=== PATIENT | male | born 1955 | race Caucasian/White ===

== ENCOUNTER 2018-06-02 08:00 | Outpatient (RCR) | payer SELFPAY ==
--- NOTE | 2018-05-26 12:01 | HP.PTEVAL_ITS ---
Patient's Visit Information CHARISSE BRAVO is a 62 year old M referred to Physical Therapy by Angelica Esparza with a diagnosis of CVA. Date of Evaluation: 05/26/18 Physical Therapist: Js Concepcion PT, - Visit Plan Frequency: 1x/Week Duration: 1 Week Plan: Skilled PT not necessary at this time. Pt is discharged. - Subjective Subjective: CVA: 05/15/18. Pt reports his R side of his body was affected by the stroke. Pt reports he did have some balance issues prior to his stroke. Pt believes this may have been caused from a long history of high BP. Pt reports good feeling in his feet. Pt reports his major complaint deals with his poor eyesight. No LE radiculopathy. Pt reports he feels about 75% recovered as far as balance and strength are concerned. Pt reports he is a [employer] by [employer], and notes he is not able to perform all his tasks yet. Pt is not in any pain this date. - Objective Neuro: B LE sensation is WNL to light touch. B patellar tendon reflex= 2/3. MMT : B LE is grossly 4+/5 throughout. Balance: DLS EO/EC > 30 sec with no limitations. Pt is unable to SLS greater than 3 sec bilaterally. - Goals Goal 1:: I with HEP Goal Time Frame: 1 Week - Rehabilitation Potential Physical Therapy Diagnosis: Pt has weakness and decreased balance secondary to CVA Rehabilitation Potential: Good - Anticipated Interventions Patient/Client Instruction: Educate patient on: Condition, Plan of Care For the Purpose of:: To improve self management Therapeutic Exercise to Include: Strength training, Balance training, Dynamic Lumbar Stabilization For the Purpose of:: To improve muscle performance and motor function, To increase tolerance to activity/condition/position Thank you for the opportunity to evaluate your patient. For Medicare and Medicare HMO plans, please review the plan of care and approve it. It will need to be FAXED BACK to us at [phone] for Medicare purposes. Please let me know if there are questions or concerns regarding this plan of care. Physician Signature: Date:
--- OUTSIDE RECORDS SUMMARY | 2018-05-26 13:57 | XMS RPT_ITS ---
:1955 Author Organization [facility] Care Team Providers Name Role Phone PHYSICIAN, NONE Primary Care Unavailable NAEEM KIMBROUGH Admitting Unavailable AMARI WHITAKER, DR. KERN Attending Unavailable NAEEM KIMBROUGH Consulting Unavailable STONEY NAIR, DAYSI Consulting Unavailable CAROLYN NAIR, ROHITH Chan Consulting Unavailable SCOTT NAIR, JULIUS Consulting Unavailable COBY NAIR, CRUZ Consulting Unavailable HERB CAROLINA Attending Unavailable PHYSICIAN, NONE Primary Care Unavailable Angelica Esparza Attending Unavailable Angelica Esparza Referring Unavailable Angelica Esparza Primary Care Unavailable PROBLEMS PROBLEMS No Problem Records FoundPROCEDURES PROCEDURES No Procedure Records FoundRESULTS RESULTS CBC Collected: 05/18/2018 Status: F Source: [facility] 4:05 AM [facility] REPOSITORY TYPE CODE TESTS RESULT OUT OF REFERENCE UNITS RANGE LAB WBC(LOINC) Low 4.50-10.80 10 3/mcL WBC 4.10 LAB RBCCT(LOINC Low 4.50-6.00 10 6/mcL ) RBC 3.88 LAB HGB(LOINC) Low 13.0-17.5 G/dL Hgb 12.3 LAB HCT(LOINC) Low 40.0-52.0 % Hct 35.9 LAB MCV(LOINC) 81.0-100.0 fL MCV 92.4 LAB MCH(LOINC) 27.0-33.0 pg MCH 31.6 LAB MCHC(LOINC) 32.0-36.0 G/dL MCHC 34.2 LAB RDW(LOINC) 11.5-15.5 % RDW 14.5 LAB PLT(LOINC) 150-450 10 3/mcL Platelet 158 LAB MPV(LOINC) 6.4-10.5 fL MPV 7.6 Performed By: #### CBC, ADIFF, ANEU, BMP, GFR ####[place] [address] .AUTO DIFF Collected: 05/18/2018 Status: F Source: [facility] 4:05 AM [facility] REPOSITORY TYPE CODE TESTS RESULT OUT OF REFERENCE UNITS RANGE LAB KRISTIE(LOINC) Low 50.0-75.0 % Neutrophil % 47.6 LAB LYM(LOINC) 20.0-40.0 % Lymphocyte % 38.2 LAB MON(LOINC) 2.0-13.0 % Monocyte % 10.0 LAB EO(LOINC) 0.0-6.0 % Eosinophil % 3.5 LAB BAS(LOINC) 0.0-2.5 % Basophil % 0.7 LAB ABLYM(LOIN 0.90-4.32 10 3/mcL C) Lymphocyte, 1.60 Absolute LAB TRAE(LOINC 0.09-1.40 10 3/mcL ) Monocyte, 0.40 Absolute LAB AEOS(LOINC 0.00-0.65 10 3/mcL ) Eosinophil, 0.10 Absolute LAB ABAS(LOINC 0.00-0.27 10 3/mcL ) Basophil, 0.00 Absolute Performed By: #### CBC, ADIFF, ANEU, BMP, GFR ####[place] [address] .NEUABS Collected: 05/18/2018 Status: F Source: [facility] 4:05 AM [facility] REPOSITORY TYPE CODE TESTS RESULT OUT OF REFERENCE UNITS RANGE LAB ANEU(LOINC) Low 2.25-8.10 10 3/mcL 1.90 Neutrophil, Absolute Performed By: #### CBC, ADIFF, ANEU, BMP, GFR ####[place] [address] BMP Collected: 05/18/2018 Status: F Source: [facility] 4:05 AM [facility] REPOSITORY TYPE CODE TESTS RESULT OUT OF REFERENCE UNITS RANGE LAB GLU(LOINC) 82-115 mg/dL Glucose Level 84 LAB NA(LOINC) 136-145 mEq/L Sodium Level 141 LAB K(LOINC) 3.5-5.0 mEq/L Potassium Level 4.0 LAB CL(LOINC) 98-110 mEq/L Chloride 105 LAB CO2(LOINC) 22-32 mEq/L CO2 27 LAB EBAL(LOINC 4.0-15.0 mEq/L ) Electrolyte 9.0 Balance LAB BUN(LOINC) 8.0-22.0 mg/dL BUN 16.0 LAB CRE(LOINC) 0.60-1.40 mg/dL Creatinine Lvl 0.92 (s) LAB BC(LOINC) 10.0-22.0 ratio BUN/Creatinine 17.4 Ratio LAB CA(LOINC) 8.4-10.1 mg/dL Calcium Lvl 8.7 Performed By: #### CBC, ADIFF, ANEU, BMP, GFR ####[place] [address] .GFR Collected: 05/18/2018 Status: F Source: [facility] 4:05 AM [facility] REPOSITORY TYPE CODE TESTS RESULT OUT OF REFERENCE UNITS RANGE LAB GFRAA(LOINC ml/min/1.73 ) GFR sqm >60 Moroccan Result Comment: GFR Population mean for , Non- Americans Ages 20-29 = 116 mL/min/1.73 sq.m. Ages 30-39 = 107 mL/min/1.73 sq.m. Ages 40-49 = 99 mL/min/1.73 sq.m. Ages 50-59 = 93 mL/ min/1.73 sq.m. Ages 60-69 = 85 mL/min/1.73 sq.m. Ages 70+ = 75 mL/min/1.73 sq.m.Chronic Kidney Disease: Less than 60 mL/min/1.73 square metersEnd Stage Renal Disease: Less than 15 mL/min/1.73 square meters LAB GFRNO(LOINC) ml/min/1.73sqm GFR Non- >60 Result Comment: GFR Population mean for , Non- Americans Ages 20-29 = 116 mL/min/1.73 sq.m. Ages 30-39 = 107 mL/min/1.73 sq.m. Ages 40-49 = 99 mL/min/1.73 sq.m. Ages 50-59 = 93 mL/ min/1.73 sq.m. Ages 60-69 = 85 mL/min/1.73 sq.m. Ages 70+ = 75 mL/min/1.73 sq.m.Chronic Kidney Disease: Less than 60 mL/min/1.73 square metersEnd Stage Renal Disease: Less than 15 mL/min/1.73 square meters Performed By: #### CBC, ADIFF, ANEU, BMP, GFR ####[place] [address] F9 Collected: 05/18/2018 Status: F Source: [facility] 4:05 AM [facility] REPOSITORY TYPE CODE TESTS RESULT OUT OF REFERENCE UNITS RANGE LAB F9(LOINC) Low 79-153 % of Normal Factor 63 IX Performed By: #### F9 ####[place] [address] UA Collected: 05/17/2018 Status: F Source: [facility] 6:09 PM [facility] REPOSITORY TYPE CODE TESTS RESULT OUT OF RANGE REFERENCE UNITS LAB SPCUA(FABIENNE NC) UA Specimen Not Type Given LAB CLRUA(FABIENNE NC) UA Color Yellow LAB APPUA(FABIENNE Clear NC) UA Appear Clear LAB SGUA(LOIN Unknown 1.006-1.029 C) UA Spec Grav <=1.005 LAB GLUA(LOIN Negative mg/dL C) UA Glucose Negative LAB BILUA(FABIENNE Neg-Trace NC) UA Bili Negative LAB KETUA(FABIENNE Neg-Trace mg/dL NC) UA Ketones Negative LAB BLDUA(FABIENNE Neg-Trace NC) UA Blood Negative LAB PHUA(LOIN 5.0 - 8.0 C) UA pH 7.5 LAB PROUA(FABIENNE Negative mg/dL NC) UA Protein Negative LAB UROUA(FABIENNE 0.2-1.0 E.U./dL NC) UA Urobilinogen 0.2 LAB NITUA(FABIENNE Negative NC) UA Nitrite Negative LAB LEUUA(FABIENNE Negative NC) UA Leuk Est Negative Performed By: #### UA ####[place] [address] CBC Collected: 05/17/2018 Status: F Source: [facility] 3:33 AM [facility] REPOSITORY TYPE CODE TESTS RESULT OUT OF REFERENCE UNITS RANGE LAB WBC(LOINC) 4.50-10.80 10 3/mcL WBC 4.50 LAB RBCCT(LOINC Low 4.50-6.00 10 6/mcL ) RBC 3.96 LAB HGB(LOINC) Low 13.0-17.5 G/dL Hgb 12.5 LAB HCT(LOINC) Low 40.0-52.0 % Hct 36.7 LAB MCV(LOINC) 81.0-100.0 fL MCV 92.8 LAB MCH(LOINC) 27.0-33.0 pg MCH 31.5 LAB MCHC(LOINC) 32.0-36.0 G/dL MCHC 33.9 LAB RDW(LOINC) 11.5-15.5 % RDW 14.3 LAB PLT(LOINC) 150-450 10 3/mcL Platelet 162 LAB MPV(LOINC) 6.4-10.5 fL MPV 7.2 Performed By: #### CBC, ADIFF, ANEU, BMP, GFR, F9 #### [address] [address] .AUTO DIFF Collected: 05/17/2018 Status: F Source: [facility] 3:33 [facility] REPOSITORY TYPE CODE TESTS RESULT OUT OF REFERENCE UNITS RANGE LAB KRISTIE(LOINC) 50.0-75.0 % Neutrophil % 54.0 LAB LYM(LOINC) 20.0-40.0 % Lymphocyte % 35.4 LAB MON(LOINC) 2.0-13.0 % Monocyte % 8.5 LAB EO(LOINC) 0.0-6.0 % Eosinophil % 1.5 LAB BAS(LOINC) 0.0-2.5 % Basophil % 0.6 LAB ABLYM(LOIN 0.90-4.32 10 3/mcL C) Lymphocyte, 1.60 Absolute LAB TRAE(LOINC 0.09-1.40 10 3/mcL ) Monocyte, 0.40 Absolute LAB AEOS(LOINC 0.00-0.65 10 3/mcL ) Eosinophil, 0.10 Absolute LAB ABAS(LOINC 0.00-0.27 10 3/mcL ) Basophil, 0.00 Absolute Performed By: #### CBC, ADIFF, ANEU, BMP, GFR, F9 #### [address] [address] .NEUABS Collected: 05/17/2018 Status: F Source: [facility] 3:33 AM [facility] REPOSITORY TYPE CODE TESTS RESULT OUT OF REFERENCE UNITS RANGE LAB ANEU(LOINC) 2.25-8.10 10 3/mcL 2.40 Neutrophil, Absolute Performed By: #### KATT, ADOLU, ANEU, BMP, GFR, F9 #### [place] [id number] BMP Collected: 05/17/2018 Status: F Source: [facility] 3:33 AM [facility] REPOSITORY TYPE CODE TESTS RESULT OUT OF REFERENCE UNITS RANGE LAB GLU(LOINC) 82-115 mg/dL Glucose Level 90 LAB NA(LOINC) 136-145 mEq/L Sodium Level 138 LAB K(LOINC) 3.5-5.0 mEq/L Potassium Level 3.8 LAB CL(LOINC) 98-110 mEq/L Chloride 104 LAB CO2(LOINC) 22-32 mEq/L CO2 26 LAB EBAL(LOINC 4.0-15.0 mEq/L ) Electrolyte 8.0 Balance LAB BUN(LOINC) 8.0-22.0 mg/dL BUN 12.0 LAB CRE(LOINC) 0.60-1.40 mg/dL Creatinine Lvl 0.87 (s) LAB BC(LOINC) 10.0-22.0 ratio BUN/Creatinine 13.8 Ratio LAB CA(LOINC) 8.4-10.1 mg/dL Calcium Lvl 8.4 Performed By: #### KATT, ADOLU, ANEU, BMP, GFR, F9 #### [place] [address] .GFR Collected: 05/17/2018 Status: F Source: [facility] 3:33 AM [facility] REPOSITORY TYPE CODE TESTS RESULT OUT OF REFERENCE UNITS RANGE LAB GFRAA(LOINC ml/min/1.73 ) GFR sqm >60 Moroccan Result Comment: GFR Population mean for , Non- Americans Ages 20-29 = 116 mL/min/1.73 sq.m. Ages 30-39 = 107 mL/min/1.73 sq.m. Ages 40-49 = 99 mL/min/1.73 sq.m. Ages 50-59 = 93 mL/ min/1.73 sq.m. Ages 60-69 = 85 mL/min/1.73 sq.m. Ages 70+ = 75 mL/min/1.73 sq.m.Chronic Kidney Disease: Less than 60 mL/min/1.73 square metersEnd Stage Renal Disease: Less than 15 mL/min/1.73 square meters LAB GFRNO(LOINC) ml/min/1.73sqm GFR Non- >60 Result Comment: GFR Population mean for , Non- Americans Ages 20-29 = 116 mL/min/1.73 sq.m. Ages 30-39 = 107 mL/min/1.73 sq.m. Ages 40-49 = 99 mL/min/1.73 sq.m. Ages 50-59 = 93 mL/ min/1.73 sq.m. Ages 60-69 = 85 mL/min/1.73 sq.m. Ages 70+ = 75 mL/min/1.73 sq.m.Chronic Kidney Disease: Less than 60 mL/min/1.73 square metersEnd Stage Renal Disease: Less than 15 mL/min/1.73 square meters Performed By: #### CBC, ADIFF, ANEU, BMP, GFR, F9 #### [address] [address] F9 Collected: 05/17/2018 Status: F Source: [facility] 3:33 AM [facility] REPOSITORY TYPE CODE TESTS RESULT OUT OF REFERENCE UNITS RANGE LAB F9(LOINC) Low 79-153 % of Normal Factor 56 IX Performed By: #### CBC, ADIFF, ANEU, BMP, GFR, F9 #### [place] [address] F9 Collected: 05/16/2018 Status: F Source: [facility] 11:56 AM [facility] REPOSITORY TYPE CODE TESTS RESULT OUT OF REFERENCE UNITS RANGE LAB F9(LOINC) 79-153 % of Normal Factor 134 IX Performed By: #### F9 ####[place] [address] CT HEAD OR BRAIN W/O Observed: 05/16/2018 Status: F Source: [facility] CONTRAST 5:37 AM [facility] REPOSITORY ORIGINALHead CT, 05/16/2018 5:43 AM INDICATION: Hemorrhagic stroke COMPARISON: Previous day TECHNIQUE: Routine non-contrast head CT. This exam was performed according to our departmental dose optimization program, and includes the following measures where applicable: automated exposure control, adjustment of the mAs and/or kVp according to patient size and/or exam, and an iterative reconstruction algorithm. FINDINGS: There is a 3 cm acute appearing hematoma in the LEFT posterior basal ganglia. Mild associated edema, and mild associated mass effect. There is slight midline shift, 2 mm or so. There is mild layering hemorrhage in the LEFT occipital horn. Kwong-white matter differentiation outside the area of edema is maintained. The calvaria and the bones of the base of the skull are intact. IMPRESSION: A small amount of blood in the LEFT occipital horn is new since the comparison. The hematoma and the ventricles are unchanged in size. Interpreted By: Coni Campbellreliminary Report By: Coni Campbell MDElectronically Signed By: Coni Campbell MD Dictated Date: 05/16/2018 8:35:40 AM Prelim Date: 05/16/2018 8:35:40 AM Sign Date: 05/16/2018 8:37:50 AM CBC Collected: 05/16/2018 Status: F Source: [facility] 4:09 AM [facility] REPOSITORY TYPE CODE TESTS RESULT OUT OF REFERENCE UNITS RANGE LAB WBC(LOINC) 4.50-10.80 10 3/mcL WBC 4.50 LAB RBCCT(LOINC Low 4.50-6.00 10 6/mcL ) RBC 3.82 LAB HGB(LOINC) Low 13.0-17.5 G/dL Hgb 12.1 LAB HCT(LOINC) Low 40.0-52.0 % Hct 35.3 LAB MCV(LOINC) 81.0-100.0 fL MCV 92.4 LAB MCH(LOINC) 27.0-33.0 pg MCH 31.7 LAB MCHC(LOINC) 32.0-36.0 G/dL MCHC 34.4 LAB RDW(LOINC) 11.5-15.5 % RDW 14.1 LAB PLT(LOINC) 150-450 10 3/mcL Platelet 159 LAB MPV(LOINC) 6.4-10.5 fL MPV 7.6 Performed By: #### CBC, ADIFF, ANEU, BMP, GFR ####[place] [address] .AUTO DIFF Collected: 05/16/2018 Status: F Source: [facility] 4:09 AM [facility] REPOSITORY TYPE CODE TESTS RESULT OUT OF REFERENCE UNITS RANGE LAB KRISTIE(LOINC) 50.0-75.0 % Neutrophil % 62.1 LAB LYM(LOINC) 20.0-40.0 % Lymphocyte % 26.6 LAB MON(LOINC) 2.0-13.0 % Monocyte % 9.3 LAB EO(LOINC) 0.0-6.0 % Eosinophil % 1.4 LAB BAS(LOINC) 0.0-2.5 % Basophil % 0.6 LAB ABLYM(LOIN 0.90-4.32 10 3/mcL C) Lymphocyte, 1.20 Absolute LAB TRAE(LOINC 0.09-1.40 10 3/mcL ) Monocyte, 0.40 Absolute LAB AEOS(LOINC 0.00-0.65 10 3/mcL ) Eosinophil, 0.10 Absolute LAB ABAS(LOINC 0.00-0.27 10 3/mcL ) Basophil, 0.00 Absolute Performed By: #### CBC, ADIFF, ANEU, BMP, GFR ####[place] [address] .NEUABS Collected: 05/16/2018 Status: F Source: [facility] 4:09 AM [facility] REPOSITORY TYPE CODE TESTS RESULT OUT OF REFERENCE UNITS RANGE LAB ANEU(LOINC) 2.25-8.10 10 3/mcL 2.80 Neutrophil, Absolute Performed By: #### CBC, ADIFF, ANEU, BMP, GFR ####[place] [address] BMP Collected: 05/16/2018 Status: F Source: [facility] 4:09 [facility] REPOSITORY TYPE CODE TESTS RESULT OUT OF REFERENCE UNITS RANGE LAB GLU(LOINC) 82-115 mg/dL Glucose Level 92 LAB NA(LOINC) 136-145 mEq/L Sodium Level 137 LAB K(LOINC) 3.5-5.0 mEq/L Potassium Level 3.5 LAB CL(LOINC) 98-110 mEq/L Chloride 102 LAB CO2(LOINC) 22-32 mEq/L CO2 27 LAB EBAL(LOINC 4.0-15.0 mEq/L ) Electrolyte 8.0 Balance LAB BUN(LOINC) 8.0-22.0 mg/dL BUN 12.0 LAB CRE(LOINC) 0.60-1.40 mg/dL Creatinine Lvl 0.78 (s) LAB BC(LOINC) 10.0-22.0 ratio BUN/Creatinine 15.4 Ratio LAB CA(LOINC) Low 8.4-10.1 mg/dL Calcium Lvl 8.3 Performed By: #### CBC, ADIFF, ANEU, BMP, GFR ####[address] [address] .GFR Collected: 05/16/2018 Status: F Source: [facility] 4:09 AM [facility] REPOSITORY TYPE CODE TESTS RESULT OUT OF REFERENCE UNITS RANGE LAB GFRAA(LOINC ml/min/1.73 ) GFR sqm >60 Moroccan Result Comment: GFR Population mean for , Non- Americans Ages 20-29 = 116 mL/min/1.73 sq.m. Ages 30-39 = 107 mL/min/1.73 sq.m. Ages 40-49 = 99 mL/min/1.73 sq.m. Ages 50-59 = 93 mL/ min/1.73 sq.m. Ages 60-69 = 85 mL/min/1.73 sq.m. Ages 70+ = 75 mL/min/1.73 sq.m.Chronic Kidney Disease: Less than 60 mL/min/1.73 square metersEnd Stage Renal Disease: Less than 15 mL/min/1.73 square meters LAB GFRNO(LOINC) ml/min/1.73sqm GFR Non- >60 Result Comment: GFR Population mean for , Non- Americans Ages 20-29 = 116 mL/min/1.73 sq.m. Ages 30-39 = 107 mL/min/1.73 sq.m. Ages 40-49 = 99 mL/min/1.73 sq.m. Ages 50-59 = 93 mL/ min/1.73 sq.m. Ages 60-69 = 85 mL/min/1.73 sq.m. Ages 70+ = 75 mL/min/1.73 sq.m.Chronic Kidney Disease: Less than 60 mL/min/1.73 square metersEnd Stage Renal Disease: Less than 15 mL/min/1.73 square meters Performed By: #### CBC, ADIFF, ANEU, BMP, GFR ####[place] [address] TSH Collected: 05/16/2018 Status: F Source: [facility] 4:09 AM [facility] REPOSITORY TYPE CODE TESTS RESULT OUT OF RANGE REFERENCE UNITS LAB TSH(LOINC) High 0.360-3.740 mcIU/mL TSH 25.400 Result Comment: Please note as of 04/12/17 new pediatric reference intervals were added for this test. Performed By: #### TSH, FT4, FT3, APTT, F9 ####[address] [address] FT4 Collected: 05/16/2018 Status: F Source: [facility] 4:09 AM [facility] REPOSITORY TYPE CODE TESTS RESULT OUT OF RANGE REFERENCE UNITS LAB FT4(LOINC) Low 0.60-1.70 ng/dL Free 0.32 T4 Result Comment: Please note as of 04/12/17 new pediatric reference intervals were added for this test. Performed By: #### TSH, FT4, FT3, APTT, F9 ####[address] [address] FT3 Collected: 05/16/2018 Status: F Source: [facility] 4:09 AM [facility] REPOSITORY TYPE CODE TESTS RESULT OUT OF RANGE REFERENCE UNITS LAB FT3(LOINC) Low 2.30-4.20 pg/mL Free 1.04 T3 Result Comment: Please note as of 04/12/17 new pediatric reference intervals were added for this test. Performed By: #### TSH, FT4, FT3, APTT, F9 ####[address] [address] APTT Collected: 05/16/2018 Status: F Source: [facility] 4:09 AM [facility] REPOSITORY TYPE CODE TESTS RESULT OUT OF REFERENCE UNITS RANGE LAB PDOSE(LOIN C) Heparin None dose (APTT) LAB APTT0(LOIN 25.0-35.0 seconds C) APTT 32.9 Result Comment: For Heparin anticoagulation therapy, the recommendedtherapeutic range is: 54-77 seconds (APTT Correlationwith Anti-Xa therapeutic range of 0.3-0.7 units/ml).PLEASE REFERENCE THE PHARMACY PROTOCOL FOR DOSING. Performed By: #### TSH, FT4, FT3, APTT, F9 ####[address] [address] F9 Collected: 05/16/2018 Status: F Source: [facility] 4:09 AM [facility] REPOSITORY TYPE CODE TESTS RESULT OUT OF REFERENCE UNITS RANGE LAB F9(LOINC) Low 79-153 % of Normal Factor 63 IX Performed By: #### TSH, FT4, FT3, APTT, F9 ####[address] [address] Observed: 05/15/2018 Status: F Source: [facility] MRPCR 5:21 PM [facility] REPOSITORY . MICRO - MicrobiologyPROCEDURE: MRSA PCR [*1] Nares BODY SITE:COLLECTED DATE/TIME: 05/15/2018 17:21 EDT RECEIVED DATE/TIME: 05/15/2018 17:31 EDTSTART DATE/TIME: 05/15/2018 17:31 EDT FREE TEXT SOURCE:FINAL REPORTSFinal Report []Verified Date/Time/Personnel: 2017 22:35 EDTMRSA NEGATIVE.MRSA DNA not detected by Real-Time Polymerase ChainReaction (PCR). A negative result may be due tointermittent colonization. Colonization may varydepending on patient treatment, patient status orexposure to high risk environments.As with all PCR based in vitro tests, extremely lowlevels of target below the limit of detection of theassay may be detected, but results may not bereproducible.Performing Locations*1: This test was performed at: [facility], [address] [place] [address], [address] [place] [address] Performed By: #### MRPCR ####[address] [address] F9 Collected: 05/15/2018 Status: F Source: [facility] 4:24 PM [facility] REPOSITORY Order Comment: factor 9 activityNo specimen @ 5:15 pm; Spoke to Sebastian in ER, he said it was drawn & tubed to Main lab. Specimenarrived in Main Lab 5 min after calling ER/Micro & BBK TYPE CODE TESTS RESULT OUT OF REFERENCE UNITS RANGE LAB F9(LOINC) 79-153 % of Normal Factor 128 IX Performed By: #### F9 ####[address] [address] CBC Collected: 05/15/2018 Status: F Source: [facility] 3:15 PM [facility] REPOSITORY TYPE CODE TESTS RESULT OUT OF REFERENCE UNITS RANGE LAB WBC(LOINC) Low 4.50-10.80 10 3/mcL WBC 4.20 LAB RBCCT(LOINC Low 4.50-6.00 10 6/mcL ) RBC 3.91 LAB HGB(LOINC) Low 13.0-17.5 G/dL Hgb 12.2 LAB HCT(LOINC) Low 40.0-52.0 % Hct 36.4 LAB MCV(LOINC) 81.0-100.0 fL MCV 93.0 LAB MCH(LOINC) 27.0-33.0 pg MCH 31.2 LAB MCHC(LOINC) 32.0-36.0 G/dL MCHC 33.6 LAB RDW(LOINC) 11.5-15.5 % RDW 14.4 LAB PLT(LOINC) 150-450 10 3/mcL Platelet 156 LAB MPV(LOINC) 6.4-10.5 fL MPV 6.9 Performed By: #### CBC, ADIFF, ANEU, BMP, TROPI, GFR, APTT , PRO, ABORH, ANTIS ####[place] [address] .AUTO DIFF Collected: 05/15/2018 Status: F Source: [facility] 3:15 PM [facility] REPOSITORY TYPE CODE TESTS RESULT OUT OF REFERENCE UNITS RANGE LAB KRISTIE(LOINC) High 50.0-75.0 % Neutrophil % 75.9 LAB LYM(LOINC) Low 20.0-40.0 % Lymphocyte % 15.4 LAB MON(LOINC) 2.0-13.0 % Monocyte % 7.6 LAB EO(LOINC) 0.0-6.0 % Eosinophil % 0.7 LAB BAS(LOINC) 0.0-2.5 % Basophil % 0.4 LAB ABLYM(LOIN Low 0.90-4.32 10 3/mcL C) Lymphocyte, 0.60 Absolute LAB TRAE(LOINC 0.09-1.40 10 3/mcL ) Monocyte, 0.30 Absolute LAB AEOS(LOINC 0.00-0.65 10 3/mcL ) Eosinophil, 0.00 Absolute LAB ABAS(LOINC 0.00-0.27 10 3/mcL ) Basophil, 0.00 Absolute Performed By: #### CBC, ADIFF, ANEU, BMP, TROPI, GFR, APTT , PRO, ABORH, ANTIS ####[place] [id number] .NEUABS Collected: 05/15/2018 Status: F Source: [facility] 3:15 PM [facility] REPOSITORY TYPE CODE TESTS RESULT OUT OF REFERENCE UNITS RANGE LAB ANEU(LOINC) 2.25-8.10 10 3/mcL 3.20 Neutrophil, Absolute Performed By: #### CBC, ADIFF, ANEU, BMP, TROPI, GFR, APTT , PRO, ABORH, ANTIS ####[place] [address] BMP Collected: 05/15/2018 Status: F Source: [facility] 3:15 [facility] REPOSITORY TYPE CODE TESTS RESULT OUT OF REFERENCE UNITS RANGE LAB GLU(LOINC) 82-115 mg/dL Glucose Level 106 LAB NA(LOINC) Low 136-145 mEq/L Sodium Level 132 LAB K(LOINC) 3.5-5.0 mEq/L Potassium Level 3.7 LAB CL(LOINC) 98-110 mEq/L Chloride 99 LAB CO2(LOINC) 22-32 mEq/L CO2 27 LAB EBAL(LOINC 4.0-15.0 mEq/L ) Electrolyte 6.0 Balance LAB BUN(LOINC) 8.0-22.0 mg/dL BUN 17.0 LAB CRE(LOINC) 0.60-1.40 mg/dL Creatinine Lvl 0.80 (s) LAB BC(LOINC) 10.0-22.0 ratio BUN/Creatinine 21.2 Ratio LAB CA(LOINC) 8.4-10.1 mg/dL Calcium Lvl 8.4 Performed By: #### CBC, ADIFF, ANEU, BMP, TROPI, GFR, APTT , PRO, ABORH, ANTIS ####[place] [address] TROPI Collected: 05/15/2018 Status: F Source: [facility] 3:15 PM [facility] REPOSITORY TYPE CODE TESTS RESULT OUT OF REFERENCE UNITS RANGE LAB TROPI(LOINC 0.000-0.040 ng/mL ) Troponin I <0.015 Result Comment: Troponin I reference ranges (06/06/14): 0.00-0.040 ng/mL Negative and non-diagnostic. >0.040 ng/mL Consistent with cardiac damage, increased clinical risk and possibility of myocardial infarction. Serial measurements, a rise & fall in test results, clinical history, appropriate symptoms and/or ECG changes may help assess possibility of [place]. *Other non-acute coronary syndrome conditions such as CHF, myocarditis, pulmonary emboli, sepsis and cardiac surgery could result in myocardial damage and increased troponin levels. Performed By: #### CBC, ADIFF, ANEU, BMP, TROPI, GFR, APTT , PRO, ABORH, ANTIS ####[place] [id number] [address] [place] [address] .GFR Collected: 05/15/2018 Status: F Source: [facility] 3:15 PM [facility] RE[facility]IT[facility] TYPE CODE TESTS RESULT OUT OF REFERENCE UNITS RANGE LAB GFRAA(LOINC ml/min/1.73 ) GFR sqm >60 [place] Result Comment: GFR Population mean for , Non- Americans Ages 20-29 = 116 mL/min/1.73 sq.m. Ages 30-39 = 107 mL/min/1.73 sq.m. Ages 40-49 = 99 mL/min/1.73 sq.m. Ages 50-59 = 93 mL/ min/1.73 sq.m. Ages 60-69 = 85 mL/min/1.73 sq.m. Ages 70+ = 75 mL/min/1.73 sq.m.Chronic Kidney Disease: Less than 60 mL/min/1.73 square metersEnd Stage Renal Disease: Less than 15 mL/min/1.73 square meters LAB GFRNO(LOINC) ml/min/1.73sqm GFR Non- >60 Result Comment: GFR Population mean for , Non- Americans Ages 20-29 = 116 mL/min/1.73 sq.m. Ages 30-39 = 107 mL/min/1.73 sq.m. Ages 40-49 = 99 mL/min/1.73 sq.m. Ages 50-59 = 93 mL/ min/1.73 sq.m. Ages 60-69 = 85 mL/min/1.73 sq.m. Ages 70+ = 75 mL/min/1.73 sq.m.Chronic Kidney Disease: Less than 60 mL/min/1.73 square metersEnd Stage Renal Disease: Less than 15 mL/min/1.73 square meters Performed By: #### CBC, ADIFF, ANEU, BMP, TROPI, GFR, APTT , PRO, ABORH, ANTIS ####[place] [id number] [place] [id number] APTT Collected: 05/15/2018 Status: F Source: [facility] 3:15 PM [facility] REPOSITORY TYPE CODE TESTS RESULT OUT OF REFERENCE UNITS RANGE LAB PDOSE(LOIN C) Heparin None dose (APTT) LAB APTT0(LOIN High 25.0-35.0 seconds C) APTT 51.5 Result Comment: no heparin confirmed with Chente RNFor Heparin anticoagulation therapy, the recommendedtherapeutic range is: 54-77 seconds ( APTT Correlationwith Anti-Xa therapeutic range of 0.3-0.7 units/ml).PLEASE REFERENCE THE PHARMACY PROTOCOL FOR DOSING. Performed By: #### CBC, ADIFF, ANEU, BMP, TROPI, GFR, APTT , PRO, ABORH, ANTIS ####[address] [address] PRO Collected: 05/15/2018 Status: F Source: [facility] 3:15 PM [facility] REPOSITORY TYPE CODE TESTS RESULT OUT OF REFERENCE UNITS RANGE LAB PT(LOINC) 9.0-14.5 seconds Protime 11.7 Result Comment: Effective 04/12/08, Protime results may be affected by some antibiotics (i.e. Ciprofloxacin, Azithromycin, Bactrim) which may potentiate the action of oral anticoagulants, with further increases in Protime /INR. LAB INR(LOINC) ratio PT International Ratio 1.0 Result Comment: [employer] [place] [employer] ( CHEST, 1992, [id number])recommended therapeutic range for oral anticoagulant therapy is:LOW RISK: Prophylaxis of venous thrombosis INR: 2.0-3.0 Treatment of pulmonary embolism 2.0-3.0 Prevention of systemic embolism 2.0-3.0HIGH RISK: Mechanical prosthetic valves 2.5-3.5 Performed By: #### CBC, ADIFF, ANEU, BMP, TROPI, GFR, APTT , PRO, ABORH, ANTIS ####[place] [address] TABO Collected: 05/15/2018 Status: F Source: [facility] 3:15 PM [facility] REPOSITORY TYPE CODE TESTS RESULT OUT OF RANGE REFERENCE UNITS LAB ABORH(LOINC Unknown ) O POS ABO/Rh Interp Performed By: #### CBC, ADIFF, ANEU, BMP, TROPI, GFR, APTT , PRO, ABORH, ANTIS ####[place] [address] TABS Collected: 05/15/2018 Status: F Source: [facility] 3:15 PM [facility] REPOSITORY TYPE CODE TESTS RESULT OUT OF REFERENCE UNITS RANGE LAB ANST(LOINC ) Antibody Negative Screen Tango ABSC Performed By: #### CBC, ADIFF, ANEU, BMP, TROPI, GFR, APTT , PRO, ABORH, ANTIS ####[place] [address] CT HEAD OR BRAIN W/O Observed: 05/15/2018 Status: F Source: [facility] CONTR[facility] 2:43 PM [facility] REPOSITORY ORIGINALHead CT, 05/15/2018 2:48 PM INDICATION: stroke standby COMPARISON: No TECHNIQUE: Routine non-contrast head CT. This exam was performed according to our departmental dose optimization program, and includes the following measures where applicable: automated exposure control, adjustment of the mAs and/or kVp according to patient size and/or exam, and an iterative reconstruction algorithm. FINDINGS: There is a 3 cm parenchymal hematoma in the posterior LEFT frontal lobe, centered near the posterior basal ganglia, with mild associated mass effect and edema. There is no intraventricular component. Kwong-white matter differentiation is maintained outside the area of edema. The calvaria and the bones of the base of the skull are intact. IMPRESSION: 3 cm acute LEFT parenchymal hemorrhage. Interpreted By: Coni Campbellreliminary Report By: Coni Campbell MDElectronically Signed By: Coni Campbell MD Dictated Date: 05/15/2018 2:48:53 PM Prelim Date: 05/15/2018 2:48:53 PM Sign Date: 05/15/2018 2:52:07 PM ALLERGIES ALLERGIES No Allergies Records FoundENCOUNTERS ENCOUNTERS ADMIT/DISCHARGE ACCOUNT NUMBER ADMITTING ENCOUNTER LOCATION SOURCE CLASS 05/26/2018 [id number] Ambulatory [place] Rima [facility] ding:OT Repository 05/18/2018 [id number] Ambulatory ABuilding:XR Saeed [facility] Repository 05/15/2018/05/18/20 [id number] NAEEM KIMBROUGH Inpatient ABuilding:ME Saeed 18 Encounter 5SRoom: Health 5673Bed: A Foundation Repository PAYERS PAYERS ENCOUNTER GUARANTOR PAYER SUBSCRIBER SOURCE 05/26/2018 CHARISSE Joe Primary Insurance:[facility] CHARISSE Diaz [place] [id number] HERNANDEZ PACKAGE PLANPolicy [facility]ODERDOB[facility], [facility]: [id number] [address]Woc: [id number] Repository Date:2018-05-21 (HP) 05/26/2018 Secondary NOT GIVENUNK [place] Insurance:SELF PAY [facility] Number: Effective Repository Date:2018-05-21 05/18/2018 CHARISSE Diaz Primary CHARISSE [facility] YODERDOB: Insurance:SELF YODERDOB: [facility] [id number] PAYPolicy Number: [id number] Repository [place] [address] [place] Date:2018-05-18 [place], [place] [address]Zqr: [phone] Name:8 [id number]: (HP) [phone] (HP) (WP) 05/15/2018 CHARISSE Diaz Primary CHARISSE Diaz [facility] YODERDOB: Insurance:SELF YODERDOB: [facility] [id number] PAYPolicy Number: [id number] Repository [address] Effective 03 [place] Date:2018-05-15 [place], [place] [address]Izo: [phone] Name:[id number]: (HP) [phone] (HP) (WP)
--- NOTE | 2018-05-26 17:20 | HP.OTEVAL ---
Patient's Visit Information CHARISSE BRAVO is a 62 year old M, referred to Occupational Therapy by Angelica Esparza, with a diagnosis of CVA. 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 He states that it affected his R side, balance walking, memory, speaking and vision. He reports that his walking has gotten better again and he likes to sing more than speaking. He returned home with spouse after hospitalization. 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 Pt lives w/ spouse in one level home with 3 steps 1 handrail. Walk in shower, no AE. std toilet seats. Right handed. - Objective Objective/Observation: Pt likes to sing and wants spouse to answer all the questions instead of himself. Pt demonstrates good R hand and upper extremity strength. Pt able to walk back to therapy area - ROM ROM Comments: BUE WF - Strength Physician/Ophthalmologist: R 85#, L 30# Strength Comments: Generalized MMT R UE 4/5 L UE 4-/5. . Pt has had increased weakness L UE for years from old injury. Pt demo good programming specialist strength R hand. Pt states no feelings of decreased strength. - Edema Other: no edema - Sensation Sensation Comments: Pt states no numbness or tingling. - Cognitive Skills Follows Directions: Yes - Nine Hole Peg Right: 40 seconds Left: 35 seconds Comments: Pt had difficult time understanding directions at first with R hand. - Stroke Specific Quality of Life Total SS-QOL Score: 55 - Rehabilitation General Assessment: Pt demonstrates decreased vision, R neglect. Pt demonstrates decreased memory and cognitive skills. Pt states he is able to get dressed on his own, occassionally might have his spouse assist with getting his feet through his pants, but is independent with all other tasks. Stands in shower to complete bathing independently. Assisting with meal prep cutting food and putting food on storage shelves. 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 Pt is having some difficulty with stabbing his food with fork secondary to decreased vision. Have educated on awareness of visual deficits and importance to turn head to look at surroundings and see everything around him secondary to neglect. Pt demonstrates good bilateral coordination tasks and able to close eyes and touch nose without difficulty R and L hand as well as, touch each finger to his thumb without difficulty. Pt able to legibly write first and last name manuscript and curse however unable to write on the line secondary to unable to visually see one line correctly. Educated on adaptive techniques, compensatory strategies to assist with writing on the line and to assist with decreased vision at this time. Recommend no OT at this time. OT evaluation only. Recommend seeing eye due to vision deficits. Pt completing BADL's independently other than occassionally needing some assist. Spouse stated she is concerned with his memory and cognitive skills. - Visit Plan Frequency: 1x/Week Duration: 1 Week General Plan: OT evaluation only. D/C OT services at this time. TEXT: Thank you for the opportunity to evaluate your patient. For Medicare and Medicare HMO plans, please review the plan of care and approve it. It will need to be FAXED BACK to us at [phone] for Medicare purposes. Please let me know if there are questions or concerns regarding this plan of care. Physician Signature: Date:
--- NOTE | 2018-06-04 14:27 | HP.SP.AD ---
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 He states that it affected his R side, balance walking, memory, speaking and vision. He returned home with spouse after hospitalization. He was in [facility] -5 days. Hx Smoking: No - Pain Is pain an issue with your current prescribed condition?: No - Personal Right Hearing Abillity: Normal Left Hearing Abillity: Normal Visual Assistive Devices: Glasses Patients Living Arrangements: With Significant Other Other Impressions - Comments Evaluation -: Patient's was present during evaluation. Patient stated that he just wanted to come here once and that was it. Initially, patient wanted to answer therapist questions for him. 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 Throughout session patient kept readjusting his glasses as he stated he was having difficulty seeing. stated that he has not had his vision tested yet. state that he at times becomes agitated. Patient is aware that he has some difficulties but stated that they are getting better. Expressive speech -: Patient's spontaneous speech was characterized by short phrases. Patient had difficulty relaying relevant formation to the therapist. Patient would perseverate on topic. Patient had difficulty communicating relevent information to the therapist. Patient kept saying that things are getting better Patient presented a auditory comprehension impairment which affected his ability to answer questions. Patient stated that he felt things keep improving. His stated that he has made some improvements since he has been home. Patient wrote his name in cursive and stated that this had improved. Auditory comprehension -: Patient presented with a moderate auditory comprehension deficit. He would perseverate on a question that had been asked and needed cueing to focus on the next question. 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 stated he has not driven the buggy since being home. Therapist suggested that he not yet drive but that he could start helping in hitching up the horse and then have someone check to make sure he did it correctly. 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 Patient stated he likes to read the Bible. Therapist suggested that he could work on improving his comprehension by having his ask him questions about what he has read. His could also read an article to him and then ask him questions about what she had read to him. Memory -: stated he is having difficulties remembering. With cueing and use of a calendar, patient was able to state the correct date. Therapist suggested that patient read a verse of the Bible and then wait 30 mins. and then try and remember the details and state them to his . He should also create a to-do list each day and cross off the task once it has been completed. Plan - Plan Plan: Patient is reluctant about coming in for therapy. It was discuss with that they could try a home program with therapist providing them with material to work on at home. Therapist stated to that if she felt that patient was continuing to have difficulties after completing the home program that she could schedule additional visits. - Recommendations Treatment Warranted: No - Prognosis Prognosis: Good - Goal #1-5 Goal #1: Patient will be trying activities at home to help improve his auditory comprehension and memory skills. Education - Patient has Indicated that the Following Identified Educational Needs: Cognitively Impaired Other Educational Needs: was present during evaluation to answer questions. - Patient Instruction Patient Education: Treatment Plan, Home Exercise Program Person Taught: Family Teaching Method: Discussion Response to teaching: Verbalize understanding
--- NOTE | 2018-09-08 12:15 | HP.SP.DC ---
ST Discharge Summary - Discharged: Discharge: Patient was initially evaluated on 06/12/18.Patient is reluctant about coming in for therapy. It was discuss with that they could try a home program with therapist providing them with material to work on at home. Therapist stated to that if she felt that patient was continuing to have difficulties after completing the home program that she could schedule additional visits. Patient has not scheduled any additional visits at this time and has been discharged from speech therapy. [ End ]
== END 2018-06-02 19:00 | disposition home or self-care (01) ==
LOC: SP 08:00
PROVIDERS: Family Provider Family Medicine; PCP Family Medicine; Visit Provider Family Medicine
DX: Z86.73 Personal history of transient ischemic attack (TIA), and cerebral infarction without residual deficits (principal); D68.1 Hereditary factor XI deficiency; R47.1 Dysarthria and anarthria
CPT/HCPCS: 92523; 97162; 97166

== ENCOUNTER → 2018-07-17 09:24 | Outpatient (CLI) | payer OTHER, SELFPAY ==
[2018-07-17 09:38] VITALS: BP 145/84; PULSE 76; RESP 16; TEMP 36.8; O2SAT 99; BMI 21.1
--- NOTE | 2018-07-17 10:21 | ONC.OV1 ---
Subjective - Date of Service Date of Service:: 07/17/18 - Chief Complaint F/U for Hemophilia B. 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 Had a stroke in March 2018. He has Hepatitis C, reported inactive. Had spontaneous bleed in L thigh and treated with factor replacement. This morning, had pain in L elbow so treated himself. - Past Medical/Social History Past Medical History Past Medical History: Blood transfusion,Hernia,Hepatitis C, Hypertension,Liver disease,Pneumonia Other Past Medical History: HYPOTHYROIDISM Past Surgical History Other Surgical History: LIVER BIOSPY Family History Paternal Past Medical History: Unknown Maternal Past Medical History: Unknown Social History Smoking Status Former smoker Review of Systems Constitutional:: Denies: Fever, Sweats, Weight loss, Appetite change, Chills Cardiovascular:: Denies: Chest pain, Palpitations, Dyspnea on exertion, Orthopnea, PND, Shortness of breath Respiratory: Denies: Cough, Hemoptysis, Shortness of Breath, Wheezing Gastrointestinal:: Denies: Abdominal pain, Nausea, Vomiting, Diarrhea, Constipation, Hematochezia Genitourinary: Denies: Dysuria, Hematuria, 15, Flank pain Musculoskeletal:: Reports: Arthralgia - L elbow.. Denies: Back pain, Myalgia Skin: Denies: Rash, Skin Changes, Wounds Neurological:: Denies: Headache, Dizziness, Visual changes, Tinnitus, Hearing loss Psychiatric: Denies: Anxiety, Depression, Homicidal Ideations, Suicidal Ideations Vital Signs Height 5 ft 9 in Weight: 64.864 kg Weight in Pounds 143.0 lbs Pulse Ox 99 Temperature 98.3 F Pulse Rate 76 Respiratory Rate 16 Blood Pressure 145/84 Blood Pressure Position Sitting - Physical Exam General: Alert, Oriented x3, No apparent distress HEENT: Atraumatic, PERRLA, EOMI, Normocephalic Oropharynx:: Dry mucosa Neck:: Supple, Trachea midline. Negative for: JVD, bilateral Cardiac:: Regular rate, Regular rhythm, Normal S1, Normal S2. Negative for: Murmur Lungs: Clear to auscultation, Excusion symmetrical. Negative for: Rhonchi, Wheezes Abdomen:: Bowel sounds x 4, Soft, Non-tender, Non-distended. Negative for: Hepatosplenomegaly Extremities:: - - Chronic nodular swellings around the L elbow. Neurological: Neuro grossly intact Psychiatric:: Appropriate affect, Euthymic Lymphatics:: Negative for: Cervical lymphadenopathy, Supraclavicular lymphadenopathy, Axillary lymphadenopathy Assessment and Plan Hemophilia B, clinically stable. Hepatitis C. 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 Had a hemorrhagic stroke. Plan is to continue factor replacement as needed. RTC 1 yr. Medications: Prescriptions This Visit Medication Instructions Recorded Amlodipine Besylate [Norvasc] 5 mg PO DAILY 07/17/18 Levothyroxine [Synthroid] 75 mg PO DAILY 07/17/18 Primary Care Provider: No Primary Care Phys Referring Provider: Scout Nelson MD - Problem List (1) Hemophilia B in male Status: Chronic Code Visit Office Visits / Consults: 02104 OV L3 Est
== END ==
PROVIDERS: Visit Provider Internal Medicine Medical Oncology
DX: D67 Hereditary factor IX deficiency (principal)

== ENCOUNTER → 2019-09-10 08:42 | Outpatient (CLI) | payer SELFPAY ==
[2019-09-10 08:59] VITALS: BP 119/70; PULSE 72; RESP 16; TEMP 36.7; O2SAT 100; BMI 21.5
--- NOTE | 2019-09-10 09:13 | HTC.HP3 ---
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 He did factor replacement for Left elbow pain, has not seen a Dentist. Has Hep C which is inactive. Health History: Past Medical History Past Medical History: Blood transfusion,Hernia,Hepatitis C, Hypertension,Liver disease,Pneumonia Other Past Medical History: HYPOTHYROIDISM Past Surgical History Other Surgical History: LIVER BIOSPY Family History Paternal Past Medical History: Unknown Maternal Past Medical History: Unknown Past Medical History (Last Updated 09/10/19 @ 09:00 by Chiqui Mendiola) Aplastic anemia (Acute) Hemophilia B (Acute) Hepatitis C (Acute) Hypothyroid (Acute) Pneumonia (Acute) Hypertension (Chronic) Past Surgical History (Last Reviewed 09/10/19 @ 08:57 by Chiqui Mendiola) History of liver biopsy (Acute) Family History (Last Reviewed 09/10/19 @ 08:59 by Chiqui Mendiola) Brother Hypertension Sister Diabetes Social History Social History: No changes Smoking Status Former smoker Allergies/Adverse Reactions: Allergy/AdvReac Type Severity Reaction Status Date / Time aspirin Allergy Severe Other Verified 09/10/19 08:57 Risk Factors Social History Social History: No changes Smoking Status Former smoker Tobacco Risk Data: Tobacco Risk Smoking Status Former smoker Type of tobacco: Smokeless tobacco usage: Never Items/Day: Year started: Years used: 22 Counseled to quit/cut down: Reason for no counseling performed: Reason for no pharmacotherapy: Tobacco use comments: Passive smoke exposure: No Substance Risk Drug use: No Caffeine use [drinks/day]: 0 Alcohol use: No Type of alcohol: Drinks per day: Has patient felt the need to cut down: Has the patient been annoyed by complaints: Has the patient felt guilty about drinking: 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 Denies: Back pain, Myalgia, Arthralgia Skin: Denies: Rash, Skin Changes, Wounds Neurological:: Denies: Headache, Dizziness, Visual changes, Tinnitus, Hearing loss Psychiatric: Denies: Anxiety, Depression, Homicidal Ideations, Suicidal Ideations Vital Signs Height 5 ft 9 in Weight: 66.088 kg Weight in Pounds 145.7 lbs Pulse Ox 100 Temperature 98.0 F Pulse Rate 72 Respiratory Rate 16 Blood Pressure 119/70 Blood Pressure Position Sitting - Physical Exam General: Alert, Oriented x3, No apparent distress HEENT: Atraumatic, PERRLA, EOMI, Normocephalic Oropharynx:: Dry mucosa Neck:: Supple, Trachea midline. Negative for: JVD, bilateral Cardiac:: Regular rate, Regular rhythm, Normal S1, Normal S2. Negative for: Murmur Lungs: Clear to auscultation, Excusion symmetrical. Negative for: Rhonchi, Wheezes Abdomen:: Bowel sounds x 4, Soft, Non-tender, Non-distended. Negative for: Hepatosplenomegaly Extremities:: - - + nodular swelling of the L elbow area.. Negative for: Cyanosis, Edema Neurological: Neuro grossly intact Skin:: Negative for: Lesions, Rash, Petechiae, Ecchymosis Psychiatric:: Appropriate affect, Euthymic Lymphatics:: Negative for: Cervical lymphadenopathy, Supraclavicular lymphadenopathy, Axillary lymphadenopathy Assessment and Plan Hemophilia B, clinically stable. Hepatitis C-stable. Left elbow deformity. Plan is to continue factor replacement as needed. Obtain X-ray L elbow and later MRI. RTC 1 yr. Primary Care Provider: Arcadio Espinoza, VIVIENNE-C Referring Provider:
--- NOTE | 2019-09-10 10:10 | RAD_ITS ---
STUDY: X-RAY - LEFT ELBOW REASON FOR EXAM: Male, 63 years old. Pain for multiple years. TECHNIQUE: 2 view(s) of the elbow. COMPARISON: None. FINDINGS: There are erosive changes along the articular surfaces of the distal humerus, radius and ulna at the level of the elbow joint. There is narrowing of the elbow joint space with areas of sclerosis along the articular surfaces and joint effusion. There is mild osteophytosis. Remainder of the humerus, radius and ulna are unremarkable. Alignment is normal. There is a large mass at the level of the elbow. 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 Electronically Signed: Trisha Wang MD at 2:57 EST , Service support ,
== END ==
PROVIDERS: Family Provider Nurse Practitioner Family; PCP Nurse Practitioner Family; Referring Provider Internal Medicine Medical Oncology; Visit Provider Internal Medicine Medical Oncology
DX: D67 Hereditary factor IX deficiency (principal)
CPT/HCPCS: 73080